=== PATIENT | female | born 1980 | race Caucasian/White ===

== ENCOUNTER 2018-09-25 13:42 | Emergency (ER) | payer MEDICARE ==
[~2018-09-25] VITALS: Ht 165.1 cm; Wt 64.0 kg
[2018-09-25 14:47] VITALS: BP 133/89
[2018-09-25] MEDS ORDERED: ONDANSETRON ODT 4 MG ONE (14:55)
[2018-09-25] MEDS ORDERED: PLEASE ENTER HEIGHT AND WEIGHT MC SCH (15:00)
[2018-09-25] MEDS ORDERED: ONDANSETRON ODT 4 MG PO ONE (15:00)
== END 2018-09-25 15:30 | disposition left against medical advice (07) ==
LOC: ED 15:19
DX: F31.9 Bipolar disorder, unspecified (principal); Z76.0 Encounter for issue of repeat prescription; F41.1 Generalized anxiety disorder; K21.9 Gastro-esophageal reflux disease without esophagitis; F43.10 Post-traumatic stress disorder, unspecified; F17.200 Nicotine dependence, unspecified, uncomplicated; Z90.49 Acquired absence of other specified parts of digestive tract
CPT/HCPCS: 99281